=== PATIENT | female | born 1950 | race Caucasian/White ===

== ENCOUNTER 2020-01-07 11:51 | Outpatient (CLI) | payer MEDICARE, OTHER, SELFPAY ==
--- NOTE | ~2020-01-07 | XR_ITS ---
EXAMINATION: XR elbow RT min 3V DATE: 01/07/2020 12:11 INDICATION: Right elbow injury. TECHNIQUE: 4 views of right elbow were obtained. COMPARISON: None. FINDINGS: There is a fracture of lateral aspect of radial head involving 40% of the articular surface in near-anatomic alignment. Joint spaces are normal. There is a large elbow joint effusion. IMPRESSION: 1. Nondisplaced fracture of the radial head. 2. Large elbow joint effusion. Reviewed, dictated and finalized at location A.
== END 2020-01-07 11:52 | disposition home or self-care (01) ==
LOC: CHSIMG 11:58
PROVIDERS: PCP Internal Medicine; Visit Provider Internal Medicine
DX: S59.901A Unspecified injury of right elbow, initial encounter (principal)
CPT/HCPCS: 73080

== ENCOUNTER 2020-12-15 10:42 | Outpatient (CLI) | payer MEDICARE, OTHER, SELFPAY ==
--- NOTE | ~2020-12-15 | XR_ITS ---
XR lumbar spine 2-3V DATE: 12/15/2020 11:05 INDICATION: Back pain, bilateral anterior hip pain for 3 weeks TECHNIQUE: AP, lateral, coned lateral lumbosacral views COMPARISON: None FINDINGS: There is mild rotatory levoscoliosis of the lumbar spine. There is dextro scoliosis of the thoracic spine. There is diffuse osteopenia. There is multilevel degenerative disc disease of the lumbar spine. No fracture or bone destruction is evident. The included lower thoracic and lumbar pedicles are intact. The sacroiliac joints appear normal. Approximately 1 cm faceted calcified presumed gallstone overlies the upper abdomen. IMPRESSION: Osteopenia Mild rotatory levoscoliosis and multilevel degenerative disc disease of the lumbar spine Cholelithiasis Reviewed, dictated and finalized at location A. IMPRESSION: Osteopenia Mild rotatory levoscoliosis and multilevel degenerative disc disease of the lum bar spine Cholelithiasis
--- NOTE | ~2020-12-15 | XR_ITS ---
EXAMINATION: XR hip BI wo pelvis DATE: 12/15/2020 11:04 INDICATION: Bilateral anterior hip pain. Paresthesias. TECHNIQUE: Anteroposterior and frog-leg lateral views of the left and right hips were obtained. COMPARISON: None. FINDINGS: Alignment is normal. No fracture or suspected avascular necrosis. Bilateral hip and sacroiliac joint spaces are normal. Small heterotopic ossicle at the cephalad tip of the left greater trochanter. Enth esophytes at the bilateral ischial tuberosities. A few small phleboliths in the pelvis. IMPRESSION: 1. Normal bilateral hip joint spaces. No etiology for reported bilateral hip pain. Reviewed, dictated and finalized at location A. IMPRESSION: 1. Normal bilateral hip joint spaces. No etiology for reported bilateral hip pa in.
== END 2020-12-15 10:43 | disposition home or self-care (01) ==
LOC: CHSIMG 10:44
PROVIDERS: PCP Internal Medicine; Visit Provider Internal Medicine
DX: G57.13 Meralgia paresthetica, bilateral lower limbs (principal)
CPT/HCPCS: 72100; 73521

== ENCOUNTER 2021-08-07 02:29 | Day surgery (SDC) | payer MEDICARE, OTHER, SELFPAY ==
[2021-07-31 15:40] VITALS: BMI 26.6
[2021-08-07 12:50] VITALS: BP 144/86; PULSE 77; RESP 18; TEMP 36.6; O2SAT 98
--- NOTE | 2021-08-07 12:55 | WPDANESEPPF ---
Anes - Initial Pre Proc Eval Procedure: Operation Date: 08/07/21 13:30 Proposed Procedures p Screening Colonoscopy - Zeus Rodriguez MD Date/Time: 08/07/21 12:55 Surgeon: Zeus Rodriguez MD Pre Op Diagnosis: hx of colon polyps Patient Data Age: 71 Gender: F Height: 1.68 m Weight: 71.2 kg Last Vital Signs Temp 36.6 C 08/07/21 12:50 Pulse 77 08/07/21 12:50 Resp 18 08/07/21 12:50 BP 144/86 H 08/07/21 12:50 Pulse Ox 98 08/07/21 12:50 Allergies Allergy/AdvReac Type Severity Reaction Status Date / Time No Known Allergies Allergy Verified 08/07/21 12:49 Home Medications Medication Instructions Recorded Confirmed Type levothyroxine 75 mcg PO DAILY 07/31/21 07/31/21 History pravastatin 20 mg PO DAILY 07/31/21 07/31/21 History Patient hx anesthesia problems: none Family hx anesthesia problems: none Results Review: All pre-operative results and documents have been reviewed as part of the pre-operative evaluation. [facility] Past Medical History Medical History (Updated 08/07/21 @ 12:56 by Pramod Altman MD) Hypothyroidism Surgical History Surgical History (Updated 08/07/21 @ 12:56 by Pramod Altman MD) History of ankle surgery Social History Social History Smoking status: Never smoker Alcohol intake: current Alcohol use details: occasional Substance use: never Substance use type: does not use Living arrangements: with family Spiritual care concerns: No Anes - Eval Final PreProcedure Day of Procedure 08/07/21 12:55 Patient weight: normal Heart: regular rate and rhythm Lungs: clear to auscultation Airway: Mallampati scale class II Neurological: alert and oriented Last oral intake: >/= 8 hours Emergent: no Anesthetic plan: proceed Anesthesia type and monitoring: general GIVS and standard monitoring Results Review: All pre-operative results and documents have been reviewed as part of the pre-operative evaluation. Informed Consent: The patient's anesthetic plan and its attendant risks and benefits were discussed with the patient/family/POA. Questions were solicited and answers provided to the satisfaction of the patient/family/POA.
[2021-08-07] MEDS: LACTATED RINGERS 1,000 ML 150 ML IV CONT (13:05)
--- NOTE | 2021-08-07 13:17 | PM.HPGS ---
History of Present Illness History of Present Illness Consent: Risks, benefits, and alternatives have been discussed and questions answered. Patient agrees to proceed with procedure. Chief complaint: hx of colon polyps Narrative: Shweta Jerez is a 71 year old female here for screening colonoscopy, last one 2009 Review of Systems Constitutional: Constitutional: Denies headache(s) and Denies weakness Eyes: Eyes: Denies blurry vision ENT: Reports Normal hearing present, Denies headache(s) and Denies neck pain Cardiovascular: Cardiovascular: Denies chest pain and Denies dyspnea Respiratory: Respiratory: Denies dyspnea Gastrointestinal: Gastrointestinal: Reports no additional gastrointestinal complaints Genitourinary: Genitourinary: Denies dysuria Musculoskeletal: Musculoskeletal: Denies neck pain Integumentary/Breasts: Skin/Breast: Denies dry skin Neurologic: Reports Normal hearing present, Denies headache(s) and Denies weakness Psychiatric: Psychiatric: Denies anxiety Endocrine: Endocrine: Denies change in body appearance Hematologic/Lymphatic: Hematologic/Lymphatic: Denies easy bleeding Allergic/Immunologic: Allergic/Immunologic: Denies urticaria PMFSH Past Medical History Medical History (Updated 08/07/21 @ 13:17 by Zeus Rodriguez MD) Colon cancer screening Hypothyroidism Surgical History Surgical History (Updated 08/07/21 @ 12:56 by Pramod Altman MD) History of ankle surgery Social History Social History Smoking status: Never smoker Alcohol intake: current Alcohol use details: occasional Substance use: never Substance use type: does not use Living arrangements: with family Spiritual care concerns: No Meds Home Medications and Allergies Home Medications Medication Instructions Recorded Confirmed Type levothyroxine 75 mcg PO DAILY 07/31/21 07/31/21 History pravastatin 20 mg PO DAILY 07/31/21 07/31/21 History Allergies Allergy/AdvReac Type Severity Reaction Status Date / Time No Known Allergies Allergy Verified 08/07/21 12:49 Vital Signs Vital Signs - 24 hr 08/07/21 12:50 Temperature 97.9 F Pulse Rate 77 Respiratory Rate 18 Blood Pressure 144/86 H Pulse Oximetry 98 Exam Const: General: comfortable and no acute distress HENMT: General nose exam: Normal nares present Eyes: General: appearance normal, both eyes and all related structures Neck: Neck: no JVD Resp: Auscultation: clear to auscultation bilaterally Cardio: Rate: regular rate Rhythm: regular rhythm GI: Inspection: non-distended GI Palp: Yes Soft to palpation Skin: General skin exam: normal color Neuro: General: gait normal Speech: normal speech Extrem: General: normal to inspection Psych: Mental Status: mental status grossly normal Assessment and Plan Assessment and plan (1) Colon cancer screening: Code(s): Z12.11 - Encounter for screening for malignant neoplasm of colon Status: Acute Assessment and Plan: colonoscopy
[2021-08-07 13:45] VITALS: BP 107/58; PULSE 71; RESP 16; O2SAT 96
[2021-08-07 13:55] VITALS: BP 113/73; PULSE 72; RESP 22; O2SAT 100
[2021-08-07 14:05] VITALS: BP 127/79; PULSE 69; RESP 22; O2SAT 100
== END 2021-08-07 14:16 | disposition home or self-care (01) ==
PROVIDERS: PCP Internal Medicine; Visit Provider Internal Medicine Gastroenterology
PROC: 0DJD8ZZ Inspection of Lower Intestinal Tract, Via Natural or Artificial Opening Endoscopic (ICD-10-PCS; CPT 45378; principal; 2021-08-07 13:30)
DX: Z12.11 Encounter for screening for malignant neoplasm of colon (principal); D12.0 Benign neoplasm of cecum; D12.5 Benign neoplasm of sigmoid colon; K63.5 Polyp of colon; E03.9 Hypothyroidism, unspecified
CPT/HCPCS: 45385; 45381; 88305; J2704; J7120

== ENCOUNTER 2022-02-09 10:05 | Outpatient (CLI) | payer MEDICARE, OTHER, SELFPAY ==
--- NOTE | ~2022-02-09 | XR_ITS ---
EXAMINATION: XR chest 2V 02/09/2022 11:05 INDICATION: Preop for back surgery PROCEDURE: 2 view chest COMPARISON: 07/13/2010 FINDINGS: The lungs are clear. The cardiomediastinal silhouette is within normal limits. There are no pleural effusions. There is no pneumothorax suspected. There is thoracic dextroscoliosis with mo derate spondylosis. IMPRESSION: 1: NO ACUTE CARDIOPULMONARY DISEASE. Reviewed, dictated and finalized at location A.
[2022-02-09 10:29] LABS: Basophils Absolute Auto 0.08 K/mm3 (0.00-0.10); Basophils Percent Auto 1.6 % (0.0-1.0); Eosinophils Percent Auto 3.9 % (1.0-6.0); Hematocrit 42.3 % (35.0-42.0); Hemoglobin 14.2 g/dL (11.7-13.8); Immature Granulocyte Absolute 0.01 K/mm3 (0.00-0.00); Immature Granulocyte Percent A 0.2 % (0.0-0.0); Lymphocytes Absolute Auto 1.87 K/mm3 (1.10-4.50); Lymphocytes Percent Auto 36.3 % (18.0-42.0); Mean Corpuscular HGB Conc 33.6 g/dL (32.0-36.0); Mean Corpuscular Hemoglobin 32.2 pg (27.0-31.0); Mean Corpuscular Volume 95.9 fL (78.0-102.0); Monocytes Absolute Auto 0.41 K/mm3 (0.10-0.90); Neutrophils Absolute Auto 2.6 K/mm3 (1.7-7.2); Platelet Count Result 252 K/mm3 (150-420); Red Blood Count 4.41 M/mm3 (4.20-5.40); Red Cell Distribution Width 12.3 % (11.6-14.4); White Blood Count 5.2 K/mm3 (4.8-10.8)
[2022-02-09 10:45] LABS: Anion Gap 5 mmol/L (8-16); Blood Urea Nitrogen 14 mg/dL (7-18); Carbon Dioxide 29 mmol/L (21-32); Chloride 106 mmol/L (98-108); Estimated Glomerular Filt Rate 56; Glucose 106 mg/dL (70-99); Osmolality Calculated 290 mOsm/kg (285-295); Potassium 4.2 mmol/L (3.5-5.1); Sodium 140 mmol/L (136-145)
[2022-02-09 11:01] LABS: Partial Thromboplastin Time 27.2 SEC (23.90-30.70); Prothrombin Time 10.5 Seconds (9.50-12.10)
--- NOTE | 2022-02-09 11:15 | ECG_ITS ---
Measurements Intervals [place] Rate: 71 P: 49 W[place]: 162 QRS: -12 QRSD: 89 T: 42 QT: 375 QTc: 409 Interpretive Statements SINUS RHYTHM BORDERLINE LEFTWARD AXIS NONSPECIFIC T-WAVE ABNORMALITY BORDERLINE ECG NO PREVIOUS ECG AVAILABLE FOR COMPARISON Electronically Signed On 02-09-2022 14:51:57 CDT by Robby George M.D.
[2022-02-09 12:19] LABS: Add Urine Microscopic? YES; Appearance Urine Clear (Clear); Bilirubin Urine Negative (Negative); Blood Urine Negative (Negative); Color Urine Light Yellow (Yellow); Glucose Urine UA Negative (Negative); Ketones Urine Negative (Negative); Leukocyte Esterase Ur Trace LEU/UL (Negative); Nitrate Urine Negative (Negative); Protein Urine Negative (Negative); Urobilinogen Urine 0.2 mg/dL (0.2-1.0); pH Urine 6.5 (5.0-8.0)
[2022-02-09 12:25] LABS: Bacteria Urine Trace /hpf; RBC Urine None seen /hpf (0-2); Squamous Epithelial Cell Urine Few /hpf (Few); WBC Urine None seen /hpf (0-3)
== END 2022-02-09 10:06 | disposition home or self-care (01) ==
LOC: CHSLAB 10:13
PROVIDERS: PCP Internal Medicine; Visit Provider Neurological Surgery
DX: M48.062 Spinal stenosis, lumbar region with neurogenic claudication (principal); Z01.818 Encounter for other preprocedural examination; Z51.81 Encounter for therapeutic drug level monitoring
CPT/HCPCS: 36415; 71046; 80048; 81001; 85025; 85610; 85730; 93005

== ENCOUNTER 2022-02-23 13:57 | Inpatient (IN) | payer MEDICARE, OTHER, SELFPAY ==
--- NOTE | 2022-02-23 14:15 | ADMGEN ---
This patient, Shweta Jerez, was admitted to 2nd Floor Room 205-1. Patient/family oriented to hospital policies and general routines including ID bracelet, bed and alarms, visiting hours, pain management, procedures, bathroom and other care routines, personal items, smoking policy, room service/diet, and visiting hours. Information on how to activate the Rapid Response Team has been discussed. Patient/Family are encouraged to report perceived risks to care and to ask questions if they do not understand what they are told or what they should do.
[2022-02-23 14:33] VITALS: BMI 27.0
[2022-02-23 14:49] VITALS: BP 136/68; PULSE 72; RESP 18; TEMP 36.3; O2SAT 98
--- NOTE | 2022-02-23 15:31 | PHAR ---
PT. PRIOR S.CR 0.9 BEFORE ADMISSION REHAB PT. ESTIMATED CRCL ~60ML/MIN. TLS
[2022-02-23 15:36] VITALS: BP 136/68; PULSE 72; RESP 18; TEMP 36.3; O2SAT 98
[2022-02-23] MEDS: HYDROcodone/acetaminophen (*CRX) 5-325 MG TABLET 1 TAB PO ×2 (15:43→22:49)
[2022-02-23] MEDS: GABAPENTIN 300 MG CAPSULE 600 MG PO (16:23)
[2022-02-23] MEDS: ACETAMINOPHEN 325 MG TABLET 650 MG PO (19:10)
[2022-02-23] MEDS: LOSARTAN POTASSIUM 25 MG TABLET PO (21:52)
[2022-02-23] MEDS: DOCUSATE SODIUM 100 MG CAPSULE PO (21:52)
[2022-02-23 23:05] VITALS: BP 137/69; PULSE 70; RESP 18; TEMP 36.7; O2SAT 95
[2022-02-24] MEDS: ACETAMINOPHEN 325 MG TABLET 650 MG PO ×3 (02:36→17:03)
[2022-02-24] MEDS: HYDROcodone/acetaminophen (*CRX) 5-325 MG TABLET 1 TAB PO ×3 (04:36→22:30)
--- NOTE | 2022-02-24 04:59 | PC.NURSE ---
Pt stated she feels that her knees have a fullness to them and bother her at times. The fullness brings some discomfort to the pt. This had started prior to admission. Findings noted and charge nurse made aware of situation.
[2022-02-24] MEDS: LEVOTHYROXINE SODIUM 75 MCG TABLET PO (06:18)
[2022-02-24 08:00] VITALS: BP 114/57; PULSE 68; RESP 18; TEMP 35.9; O2SAT 100
[2022-02-24] MEDS: GABAPENTIN 300 MG CAPSULE 600 MG PO ×2 (08:43→17:03)
[2022-02-24] MEDS: ASPIRIN 81 MG ENTERIC TABLET PO (08:43)
[2022-02-24] MEDS: polyethylene glycoL 3350 17 GM POWD.PACK PO (08:43)
[2022-02-24] MEDS: ENOXAPARIN 40 MG/0.4 ML SYRINGE SUB-Q (08:43)
[2022-02-24] MEDS: DOCUSATE SODIUM 100 MG CAPSULE PO ×2 (08:43→21:02)
[2022-02-24] MEDS: PRAVASTATIN SODIUM 20 MG TABLET PO (08:43)
--- NOTE | 2022-02-24 10:49 | PM.IMHP ---
H&P: HPI History of Present Illness Date/Time: 02/24/22 10:49 Chief Complaint: Rehab Narrative: This is a 71-year-old female who presented to outside hospital with back pain, leg pain and claudication. Her MRI showed that she has severe lumbar stenosis of L2, L3 and L4 especially at L4 and 5 interspace. She also had thoracic stenosis at T10 level and cord compression. She presented for an elective decompression on 02/22/2022 8 L2/L3/L4 laminectomy/medial facetectomy and bilateral foraminotomy was completed , patient admitted in swing bed for rehabilitation due to decreased balance decreased mobility in severe limited function endurant and/or mobility. Patient's WBC 7.0 hemoglobin 10.5, hematocrit 31.5, platelets 233, sodium 134, potassium 4.1, BUN 14, creatinine 0.90, glucose 124,. Patient notes that at this time her pain is controlled she was informed to notify me if it is not controlled and I will adjust her medications. The patient denies SOB, CP, palpitation, extremity numbness, lightheadedness, dizziness, constipation, diarrhea, chills, or fever. [facility] Past Medical History Medical History (Updated 02/24/22 @ 11:00 by JAYDA Levine) Colon cancer screening HLD (hyperlipidemia) HTN (hypertension) Hypothyroidism Hypothyroidism Surgical History Surgical History (Updated 02/24/22 @ 11:00 by JAYDA Levine) History of ankle surgery Social History Social History Smoking status: Never smoker Alcohol intake: current Drinks per week: 0 Alcohol use details: occasional Substance use: never Substance use type: does not use Spiritual care concerns: No Meds Home Medications and Allergies Home Medications Medication Instructions Recorded Confirmed Type levothyroxine 75 mcg tablet 75 mcg PO DAILY 07/31/21 02/23/22 History pravastatin 20 mg tablet 20 mg PO DAILY 07/31/21 02/23/22 History aspirin 81 mg tablet,delayed 81 mg PO DAILY 02/23/22 02/23/22 History release (Ecotrin Low Strength) calcium-ergocalciferol (vit D2) 1 tablet PO QACLUNCH 02/23/22 02/23/22 History tablet enoxaparin 40 mg/0.4 mL 40 mg subcut DAILY 02/23/22 02/23/22 History subcutaneous syringe gabapentin 600 mg tablet 600 mg PO BID 02/23/22 02/23/22 History losartan 25 mg tablet 25 mg PO QHS 02/23/22 02/23/22 History oxycodone 10 mg tablet 10 mg PO Q4H PRN Pain, Moderate 02/23/22 02/23/22 History Allergies Allergy/AdvReac Type Severity Reaction Status Date / Time codeine AdvReac Itching Verified 02/23/22 15:16 Corticosteroids AdvReac Unknown Verified 02/23/22 15:16 (Glucocorticoids) Vital Signs Vital Signs - 24 hr 02/23/22 14:49 02/23/22 14:49 02/23/22 15:36 Temperature 97.4 F L 97.4 F L Pulse Rate 72 72 72 Respiratory Rate 18 18 18 Blood Pressure 136/68 136/68 Pulse Oximetry 98 98 98 Oxygen Delivery Room Air Room Air Room Air 02/23/22 23:05 02/24/22 08:00 Temperature 98.1 F 96.6 F L Pulse Rate 70 68 Respiratory Rate 18 18 Blood Pressure 137/69 114/57 L Pulse Oximetry 95 100 Oxygen Delivery Room Air Room Air Exam Narrative: GENERAL: This is a well-nourished, well-developed patient, in no apparent distress. HEAD: normocephalic, atraumatic. EYES: PERRL. Sclera clear/white. Vision is grossly intact. EARS: External ears normal, auditory canals clear and without drainage, TMs normal without perforation. Hearing grossly intact. NOSE: External nose normal with no obvious nasal discharge, nares without redness, no rhinorrhea. THROAT: Mucous membranes moist, posterior pharynx clear. NECK: Neck supple, non-tender without lymphadenopathy, masses or thyromegaly. CARDIOVASCULAR: Regular rate and rhythm without murmurs, gallops, or rubs. RESPIRATORY: Clear to auscultation. Breath sounds equal bilaterally. No wheezes, rales, or rhonchi. GASTROINTESTINAL: Abdomen soft, non-tender, nondistended. Bowel sounds are active. No hepato-spl
[2022-02-24] MEDS: CALCIUM/VITAMIN D 250 MG TABLET 1 TABLET PO (11:50)
[2022-02-24 12:15] LABS: Thyroid Stimulating Hormone 1.66 uIU/mL (0.36-3.74)
[2022-02-24 16:00] VITALS: BP 124/64; PULSE 64; RESP 18; TEMP 35.8; O2SAT 94
[2022-02-24] MEDS: LOSARTAN POTASSIUM 25 MG TABLET PO (21:02)
[2022-02-24 23:02] VITALS: BP 145/78; PULSE 61; RESP 17; TEMP 36.4; O2SAT 99
[2022-02-25] MEDS: ACETAMINOPHEN 325 MG TABLET 650 MG PO ×4 (04:11→20:49)
[2022-02-25] MEDS: LORazepam (*CRX) 0.5 MG TABLET PO (04:13)
[2022-02-25] MEDS: LEVOTHYROXINE SODIUM 75 MCG TABLET PO (06:47)
--- NOTE | 2022-02-25 07:02 | PC.NURSE ---
[place] dressing on pt's back removed because pt was anxious that she had ripped a stitch open. Upon inspection the wound is healing nicely and has not split open. Minimal drainage noted w/no odor. Skin around incision has pink/red healing tissue and some scabs present on the lower left area. Incision is now open to air.
[2022-02-25 08:00] VITALS: BP 128/56; PULSE 89; RESP 16; TEMP 36.4; O2SAT 94
[2022-02-25] MEDS: DOCUSATE SODIUM 100 MG CAPSULE PO ×2 (08:50→20:48)
[2022-02-25] MEDS: polyethylene glycoL 3350 17 GM POWD.PACK PO (08:50)
[2022-02-25] MEDS: GABAPENTIN 300 MG CAPSULE 600 MG PO ×2 (08:50→17:05)
[2022-02-25] MEDS: ENOXAPARIN 40 MG/0.4 ML SYRINGE SUB-Q (08:50)
[2022-02-25] MEDS: ASPIRIN 81 MG ENTERIC TABLET PO (08:51)
[2022-02-25] MEDS: PRAVASTATIN SODIUM 20 MG TABLET PO (08:51)
[2022-02-25] MEDS: CALCIUM/VITAMIN D 250 MG TABLET 1 TABLET PO (12:31)
[2022-02-25 16:00] VITALS: BP 137/63; PULSE 61; RESP 18; TEMP 36.2; O2SAT 99
[2022-02-25] MEDS: LOSARTAN POTASSIUM 25 MG TABLET PO (20:48)
[2022-02-25 23:48] VITALS: BP 142/61; PULSE 63; RESP 15; TEMP 36.6; O2SAT 95
[2022-02-26] MEDS: LORazepam (*CRX) 0.5 MG TABLET PO ×2 (02:30→21:00)
[2022-02-26] MEDS: LEVOTHYROXINE SODIUM 75 MCG TABLET PO (06:31)
[2022-02-26] MEDS: ACETAMINOPHEN 325 MG TABLET 650 MG PO ×4 (06:34→20:58)
[2022-02-26 08:00] VITALS: BP 134/68; PULSE 64; RESP 14; TEMP 36.7; O2SAT 95
--- NOTE | 2022-02-26 08:30 | P.PNCROSS_ITS ---
Event Note Event Note Event Note: Patient states that she is trying to avoid narcotics she has not had a bowel mo vement in a couple of days informed her that she has suppository if needed.
[2022-02-26] MEDS: ENOXAPARIN 40 MG/0.4 ML SYRINGE SUB-Q (08:57)
[2022-02-26] MEDS: ASPIRIN 81 MG ENTERIC TABLET PO (08:58)
[2022-02-26] MEDS: GABAPENTIN 300 MG CAPSULE 600 MG PO ×2 (08:58→17:05)
[2022-02-26] MEDS: PRAVASTATIN SODIUM 20 MG TABLET PO (08:58)
[2022-02-26] MEDS: DOCUSATE SODIUM 100 MG CAPSULE PO ×2 (08:58→21:00)
[2022-02-26] MEDS: polyethylene glycoL 3350 17 GM POWD.PACK PO (08:58)
[2022-02-26] MEDS: CALCIUM/VITAMIN D 250 MG TABLET 1 TABLET PO (11:56)
[2022-02-26 16:00] VITALS: BP 120/75; PULSE 62; RESP 18; TEMP 36.3; O2SAT 96
[2022-02-26] MEDS: LOSARTAN POTASSIUM 25 MG TABLET PO (21:00)
[2022-02-26] MEDS: traZODone HCL 50 MG TABLET PO (21:00)
[2022-02-27] VITALS: BP 116/60; PULSE 63; RESP 16; TEMP 36.5; O2SAT 96
[2022-02-27] MEDS: ACETAMINOPHEN 325 MG TABLET 650 MG PO ×3 (06:32→16:29)
[2022-02-27] MEDS: LEVOTHYROXINE SODIUM 75 MCG TABLET PO (06:43)
[2022-02-27 08:00] VITALS: BP 120/60; PULSE 65; RESP 14; TEMP 36.7; O2SAT 98
[2022-02-27] MEDS: GABAPENTIN 300 MG CAPSULE 600 MG PO ×2 (09:10→16:28)
[2022-02-27] MEDS: ASPIRIN 81 MG ENTERIC TABLET PO (09:10)
[2022-02-27] MEDS: PRAVASTATIN SODIUM 20 MG TABLET PO (09:13)
[2022-02-27] MEDS: polyethylene glycoL 3350 17 GM POWD.PACK PO (09:13)
[2022-02-27] MEDS: ENOXAPARIN 40 MG/0.4 ML SYRINGE SUB-Q (09:13)
[2022-02-27] MEDS: DOCUSATE SODIUM 100 MG CAPSULE PO ×2 (09:14→20:47)
[2022-02-27] MEDS: CALCIUM/VITAMIN D 250 MG TABLET 1 TABLET PO (12:15)
[2022-02-27 14:15] VITALS: BP 120/60; PULSE 70; RESP 14; TEMP 36.7; O2SAT 98
[2022-02-27 15:25] VITALS: BP 110/55; PULSE 96; RESP 16; TEMP 36.6; O2SAT 100
[2022-02-27] MEDS: LORazepam (*CRX) 0.5 MG TABLET PO (20:47)
[2022-02-27] MEDS: LOSARTAN POTASSIUM 25 MG TABLET PO (21:01)
[2022-02-27 23:58] VITALS: BP 117/69; PULSE 72; RESP 20; TEMP 36.2; O2SAT 100
[2022-02-28] MEDS: LEVOTHYROXINE SODIUM 75 MCG TABLET PO (06:32)
[2022-02-28] MEDS: ACETAMINOPHEN 325 MG TABLET 650 MG PO ×2 (07:42→16:14)
[2022-02-28 08:00] VITALS: BP 111/58; PULSE 65; RESP 14; TEMP 36.4; O2SAT 98
[2022-02-28] MEDS: ENOXAPARIN 40 MG/0.4 ML SYRINGE SUB-Q (09:12)
[2022-02-28] MEDS: PRAVASTATIN SODIUM 20 MG TABLET PO (09:13)
[2022-02-28] MEDS: ASPIRIN 81 MG ENTERIC TABLET PO (09:14)
[2022-02-28] MEDS: DOCUSATE SODIUM 100 MG CAPSULE PO (09:14)
[2022-02-28] MEDS: polyethylene glycoL 3350 17 GM POWD.PACK PO (09:15)
[2022-02-28] MEDS: GABAPENTIN 300 MG CAPSULE 600 MG PO ×2 (09:19→16:15)
[2022-02-28] MEDS: CALCIUM/VITAMIN D 250 MG TABLET 1 TABLET PO (12:00)
[2022-02-28 16:00] VITALS: BP 139/66; PULSE 78; RESP 18; TEMP 36.8; O2SAT 95
[2022-02-28] MEDS: LOSARTAN POTASSIUM 25 MG TABLET PO (21:02)
[2022-02-28] MEDS: LORazepam (*CRX) 0.5 MG TABLET PO (21:02)
[2022-02-28 23:53] VITALS: BP 136/76; PULSE 75; RESP 18; TEMP 36.1; O2SAT 95
[2022-03-01] MEDS: LEVOTHYROXINE SODIUM 75 MCG TABLET PO (06:07)
[2022-03-01 08:00] VITALS: BP 138/75; PULSE 75; RESP 14; TEMP 36.8; O2SAT 98
[2022-03-01] MEDS: GABAPENTIN 300 MG CAPSULE 600 MG PO (09:20)
[2022-03-01] MEDS: DOCUSATE SODIUM 100 MG CAPSULE PO (09:34)
[2022-03-01] MEDS: ASPIRIN 81 MG ENTERIC TABLET PO (09:34)
[2022-03-01] MEDS: polyethylene glycoL 3350 17 GM POWD.PACK PO (09:39)
--- NOTE | 2022-03-01 09:39 | PM.IMHP ---
H&P: HPI History of Present Illness Date/Time: 03/01/22 09:39 Chief Complaint: Laminectomy, Weakness, REHAB Review of Systems Review of Systems: back pain, Weakness All systems reviewed & are unremarkable except as noted in HPI and below [facility] Past Medical History Medical History Colon cancer screening HLD (hyperlipidemia) HTN (hypertension) Hypothyroidism Hypothyroidism Surgical History Surgical History History of ankle surgery Social History Social History Smoking status: Never smoker Alcohol intake: current Drinks per week: 0 Alcohol use details: occasional Substance use: never Substance use type: does not use Spiritual care concerns: No Comments At time as signature, I have reviewed and agree with nursing past medical, social, surgical and family history. Please see nursing chart for further information. There is no relevant family history pertinent to the presenting complaint. Meds Home Medications and Allergies Home Medications Medication Instructions Recorded Confirmed Type levothyroxine 75 mcg tablet 75 mcg PO DAILY 07/31/21 02/23/22 History pravastatin 20 mg tablet 20 mg PO DAILY 07/31/21 02/23/22 History aspirin 81 mg tablet,delayed 81 mg PO DAILY 02/23/22 02/23/22 History release (Ecotrin Low Strength) calcium-ergocalciferol (vit D2) 1 tablet PO QACLUNCH 02/23/22 02/23/22 History tablet enoxaparin 40 mg/0.4 mL 40 mg subcut DAILY 02/23/22 02/23/22 History subcutaneous syringe gabapentin 600 mg tablet 600 mg PO BID 02/23/22 02/23/22 History losartan 25 mg tablet 25 mg PO QHS 02/23/22 02/23/22 History oxycodone 10 mg tablet 10 mg PO Q4H PRN Pain, Moderate 02/23/22 02/23/22 History lorazepam 0.5 mg tablet 0.5 mg PO Q6H PRN Anxiety #10 tabs 03/01/22 Rx Allergies Allergy/AdvReac Type Severity Reaction Status Date / Time codeine AdvReac Itching Verified 02/23/22 15:16 Corticosteroids AdvReac Unknown Verified 02/23/22 15:16 (Glucocorticoids) Vital Signs Vital Signs - 24 hr 02/28/22 16:00 02/28/22 23:53 03/01/22 08:00 Temperature 98.2 F 96.9 F L 98.3 F Pulse Rate 78 75 75 Respiratory Rate 18 18 14 Blood Pressure 139/66 136/76 138/75 Pulse Oximetry 95 95 98 Oxygen Delivery Room Air Room Air Room Air Exam Narrative: GENERAL: This is a well-nourished, well-developed patient, in no apparent distress. HEAD: normocephalic, atraumatic. EYES: PERRL. Sclera clear/white. Vision is grossly intact. EARS: External ears normal, auditory canals clear and without drainage, TMs normal without perforation. Hearing grossly intact. NOSE: External nose normal with no obvious nasal discharge, nares without redness, no rhinorrhea. THROAT: Mucous membranes moist, posterior pharynx clear. NECK: Neck supple, non-tender without lymphadenopathy, masses or thyromegaly. CARDIOVASCULAR: Regular rate and rhythm without murmurs, gallops, or rubs. RESPIRATORY: Clear to auscultation. Breath sounds equal bilaterally. No wheezes, rales, or rhonchi. GASTROINTESTINAL: Abdomen soft, non-tender, nondistended. Bowel sounds are active. No hepato-splenomegaly, or palpable masses. No guarding. SKIN: Lower back clean dry and intact with glue adhesive. No signs and symptoms of infection healing well NEURO: awake, alert, and oriented to person, place and time. There were no obvious focal neurologic abnormalities. Steady gait EXTREMITIES: Normal range of motion. No edema. No calf tenderness. Negative Homans sign bilaterally. BACK: Nontender without deformity or crepitance. No flank tenderness. Assessment and Plan Assessment and plan (1) S/P spinal surgery: Code(s): Z98.890 - Other specified postprocedural states Status: Acute Assessment and Plan: Status post t-10/11 laminectomy with L 2/3, L3/4 laminectomy
[2022-03-01] MEDS: PRAVASTATIN SODIUM 20 MG TABLET PO (09:40)
--- NOTE | 2022-03-01 12:17 | PM.DS ---
DS: Admitting Diagnosis Discharge Date 03/01/2022 Admitting Diagnosis laminectomy. Weakness, REhab DS: Discharge Diagnosis Discharge Diagnosis (1) S/P spinal surgery: Code(s): Z98.890 - Other specified postprocedural states Status: Acute Assessment and Plan: Status post t-10 laminectomy with L 2/3, L3/4 laminectomy complete 02/19/2022 Continue pain control at home Monitor for signs and symptoms of infection Nose stooping/twisting or bending or lifting over 10 ib Leave surgical site open to air as instructed by surgeon Return to Dr. Pizano office in 6 week (2) HTN (hypertension): Code(s): I10 - Essential (primary) hypertension Status: Acute Assessment and Plan: monitor blood pressure continue Losartan continue to monitor blood pressure (3) HLD (hyperlipidemia): Code(s): E78.5 - Hyperlipidemia, unspecified Status: Acute Assessment and Plan: Continue home medication (4) Hypothyroidism: Code(s): E03.9 - Hypothyroidism, unspecified Status: Acute Assessment and Plan: Continue you Oral antithyroid medication (5) Weakness: Code(s): R53.1 - Weakness Status: Acute Assessment and Plan: ?Exhibit tolerance during physical activity as evidenced by a normal fluctuation of vital signs during physical activity. ?Patient will be? ability to perform required activities of daily living. Provide appropriate nutrition for healing and strength. ?Use appropriate to prevent falls. Continue physical therapy/occupational therapy. DS: Summary Hospital Course Reason for hospitalization: Weakness, Laminectomy, REhab Hospital Course: This is a 71 year old female that is here postsurgical decompression laminectomy medial fasciectomy patient has a past medical history of high blood pressure, hyperlipidemia, hypothyroidism and weakness postsurgical procedure. Patient has been participating with physical therapy and has greatly improved. Patient uses a walker to get around patient endurance has improved and her mobility with a walker has significantly improved patient is able to get around by herself without walker pain is well controlled. At this time patient will go home as labs are within normal limits potassium 4.2, sodium 140, BUN 14, creatinine 0.99, WBCs are 5.2, hemoglobin 14.2, [place] 42.3 platelets 252. Patient will have outpatient physical therapy she has remained afebrile no shortness of breath chest palpitations extremity numbness no lightness dizziness constipation or diarrhea. Time Spent with Patient Time attestation: Total time spent providing and/or coordinating discharge services: Exam Narrative: GENERAL: This is a well-nourished, well-developed patient, in no apparent distress. HEAD: normocephalic, atraumatic. EYES: PERRL. Sclera clear/white. Vision is grossly intact. EARS: External ears normal, auditory canals clear and without drainage, TMs normal without perforation. Hearing grossly intact. NOSE: External nose normal with no obvious nasal discharge, nares without redness, no rhinorrhea. THROAT: Mucous membranes moist, posterior pharynx clear. NECK: Neck supple, non-tender without lymphadenopathy, masses or thyromegaly. CARDIOVASCULAR: Regular rate and rhythm without murmurs, gallops, or rubs. RESPIRATORY: Clear to auscultation. Breath sounds equal bilaterally. No wheezes, rales, or rhonchi.? GASTROINTESTINAL: Abdomen soft, non-tender, nondistended. Bowel sounds are active. No hepato-splenomegaly, or palpable masses. No guarding. SKIN: Lower back clean dry and intact with glue adhesive.? No signs and symptoms of infection healing well granulation of old drainage noted no erythema NEURO: awake, alert, and oriented to person, place and time. There were no obvious focal neurologic abnormalities.? Steady gait EXTREMITIES: Normal range of motion.? No edema. No calf tenderness. Negative Homans sign bilaterally.
--- NOTE | 2022-03-01 13:30 | PC.NURSE ---
Pt discharged to home with vss. Discharge instructions given to pt and spouse regarding follow up appointments, medications and S&S of infection. Both verbalized understanding. RN took pt to the car via WC.
--- NOTE | 2022-03-03 11:04 | PC.NURSE ---
Follow up call made, spoke with Shweta, doing better today, yesterday was rough , states nurse did go over discharge instructions, understood them and had no questions, states nursing care was excellent, nurses were very understanding, patient with her.
== END 2022-03-01 13:10 | disposition home health service (06) | DRG 561 ==
PROVIDERS: Nurse Practitioner; Admitting Provider Internal Medicine; PCP Neurological Surgery; Visit Provider Internal Medicine
DX: Z47.89 Encounter for other orthopedic aftercare (principal); I10 Essential (primary) hypertension; E78.5 Hyperlipidemia, unspecified; E03.9 Hypothyroidism, unspecified
CPT/HCPCS: 36415; 84443; 97110; 97161; 97165; 97530; 97535; A9270; J1650

== ENCOUNTER 2022-04-10 12:59 | Outpatient (RCR) | payer MEDICARE, OTHER, SELFPAY ==
--- NOTE | 2022-04-10 15:11 | PTOPEVAL ---
Thank you for referring Shweta Jerez to [facility].? The patient is scheduled to be seen for therapy?1-2x/week for 8 visits. Please review, sign, date and return this plan of care JULIAN. I agree with and certify that the following plan of care is medically necessary. Referring Physician Date Admitting Provider: Attending Provider: Roly Pizano, Referring Provider: *PT Outpatient Evaluation Start: 04/10/22 12:44 Freq: Status: Active Protocol: Document 04/10/22 12:44 [facility] (Rec: 04/10/22 14:09 [facility] [id number]) Therapy Assessment Status Assessment Status Assessment Status Evaluation Outpatient Past Medical History Neurological History Hx Neurological Disorders No Significant History Cardiovascular History Hx Hypercholesterolemia Yes Hx Hypertension Yes Respiratory History Hx Respiratory Disorders No Significant History Gastrointestinal History Hx Gastrointestinal Disorders No Significant History Genitourinary History Hx Genitourinary Disorders No Significant History Musculoskeletal History Hx Fractures Yes: right ankle-implants have been removed Hematological History Hx Hematological Disorders No Significant History Endocrine History Hx Hypothyroidism Yes HEENT History Hx Cataracts Yes: removed Integumentary History Hx Skin Disorders No Significant History Reproductive History Hx Reproductive Disorders No Significant History Psychosocial History Hx Psychiatric Disorders No Significant History Pain History History of Any Previous or Ongoing No Significant History Instance of Pain Anesthesia History Hx Anesthesia Reactions No Significant History Evaluation Information Problem Diagnosis Low back pain Onset 02/19/22 Subjective Information Pt reports that she had a Query Text:As Reported By Patient/ laminectomy (T10-11 and L2-3-4 Family ) on 02/19/22. Before surgery, she experienced bilateral radicular symptoms in her legs . Symptoms have improved since surgery but have not fully resolved. Pain described as searing. Feels bad when lying down or sitting too long, has difficulty with reaching down to the floor or when coming up from reaching down. Feels like she is getting around well but she is looking to improve strength, stability,
--- NOTE | 2022-04-10 15:13 | PTOPEVAL ---
Thank you for referring Shweta Jerez to [facility].? The patient is scheduled to be seen for therapy? ____x/week for ___ weeks. Please review, sign, date and return this plan of care JULIAN. I agree with and certify that the following plan of care is medically necessary. Referring Physician Date Admitting Provider: Attending Provider: Roly Pizano, Referring Provider: *PT Outpatient Evaluation Start: 04/10/22 12:44 Freq: Status: Active Protocol: Document 04/10/22 12:44 [facility] (Rec: 04/10/22 14:09 [facility] [id number]) Therapy Assessment Status Assessment Status Assessment Status Evaluation Outpatient Past Medical History Neurological History Hx Neurological Disorders No Significant History Cardiovascular History Hx Hypercholesterolemia Yes Hx Hypertension Yes Respiratory History Hx Respiratory Disorders No Significant History Gastrointestinal History Hx Gastrointestinal Disorders No Significant History Genitourinary History Hx Genitourinary Disorders No Significant History Musculoskeletal History Hx Fractures Yes: right ankle-implants have been removed Hematological History Hx Hematological Disorders No Significant History Endocrine History Hx Hypothyroidism Yes HEENT History Hx Cataracts Yes: removed Integumentary History Hx Skin Disorders No Significant History Reproductive History Hx Reproductive Disorders No Significant History Psychosocial History Hx Psychiatric Disorders No Significant History Pain History History of Any Previous or Ongoing No Significant History Instance of Pain Anesthesia History Hx Anesthesia Reactions No Significant History Evaluation Information Problem Diagnosis Low back pain Onset 02/19/22 Subjective Information Pt reports that she had a Query Text:As Reported By Patient/ laminectomy (T10-11 and L2-3-4 Family ) on 02/19/22. Before surgery, she experienced bilateral radicular symptoms in her legs . Symptoms have improved since surgery but have not fully resolved. Pain described as searing. Feels bad when lying down or sitting too long, has difficulty with reaching down to the floor or when coming up from reaching down. Feels like she is getting around well but she is looking to improve strength, stability,
== END 2022-05-14 15:41 | disposition home or self-care (01) ==
LOC: CHSPT 12:59
PROVIDERS: Visit Provider Neurological Surgery
DX: M47.814 Spondylosis without myelopathy or radiculopathy, thoracic region (principal); M48.062 Spinal stenosis, lumbar region with neurogenic claudication
CPT/HCPCS: 97110; 97112; 97140; 97161

== ENCOUNTER 2022-10-31 15:13 | Outpatient (RCR) | payer MEDICARE, OTHER, SELFPAY ==
--- NOTE | 2022-10-31 16:00 | PTOPEVAL1 ---
Assessment and note entered by Robby Vizcarra Evaluation Information Assessment Status Evaluation Diagnosis spinal stenosis, low back pain, post laminectomy Onset 02/19/22 Subjective Information Pt. reports that she underwent lumbar surgery in January. She reports that prior to surgery she had to walk with a cane due to pain in the legs. She reports that surgery has helped to reduce those symptoms. She reports that despite her initial progress she continues to note some weakness in the legs and pain into the legs, worse on the left than the right. She attempts to walk 1 mile a day if the weather is good. She states that she has to be more careful with her walking and notes that she will trip more frequently. She does notice that she will catch the left foot while walking on occasion. Pt. reports that her goal is to improve her steadiness with walking and improve strength. Reported Pain Level Pain Score 2: Self Report Assessment PT Clinical Summary Pt. is a 72 year old female who enters the clinic with left l.e. weakness and pain following lumbar surgery 8 months ago. She presents with generalized left l.e. weakness, impaired gait, imparied flexibility, impaired postural awareness, and pain on this date. Continued skilled PT is indicated in order to improve these areas to allow for improved comfort with IADL's. Plan of Care Interventions Electrical Stimulation,Hot Pack/Cold Pack,Manual Therapy,Neuro Re-education,Therapeutic Activities, Therapeutic Exercise PT Services Indicated Yes Treatment Frequency and 1x/week x 8 visits Duration These treatments will address the objective and functional deficits as defined above. The patient will be advanced safely and appropriately in order for the patient to progress towards his/her prior level of function. Additional exercises will be introduced and as well as a comprehensive home exercise program upon discharge, if needed, ?to ensure carryover of functional gains achieved in the clinic. This treatment plan has been reviewed and agreement upon by the patient.
--- NOTE | 2022-11-26 10:42 | PTOPDC ---
Assessment and note entered by Sharmila Funes DPT Evaluation Information Assessment Status Re-evaluation Diagnosis spinal stenosis, low back pain, post laminectomy Onset 02/19/22 Subjective Information Patient reports improvement since starting PT. She reports she is able to stand and walk longer. She reports she is able to get into and out of the bathtub with no pain and she reports she is able to get on the floor to play with her grandkids with no increase in pain. Reported Pain Level Pain Score 0: Self Report Assessment PT Clinical Summary Patient was seen for 4 visits and made signifcant progress in skilled PT. She has been able to return to getting into and out of the bath tub, getting on the floor to play with her grandchildren, standing for increased time and ambulating prolonged distances. She is independent with HEP and will be discharged at this time. Plan of Care PT Services Indicated No
== END 2022-11-26 14:31 | disposition home or self-care (01) ==
LOC: CHSPT 15:13
PROVIDERS: PCP Internal Medicine; Visit Provider Neurological Surgery
DX: M47.814 Spondylosis without myelopathy or radiculopathy, thoracic region (principal); M48.062 Spinal stenosis, lumbar region with neurogenic claudication
CPT/HCPCS: 97014; 97110; 97161; G0283

== ENCOUNTER 2023-10-03 00:08 | Day surgery (SDC) | payer MEDICARE, OTHER, SELFPAY ==
[2023-09-10 15:42] VITALS: BMI 26.6
--- NOTE | 2023-10-01 09:44 | SUR.PREOP ---
Patient called regarding upcoming procedure. Reviewed preop instructions, appointment times, and procedure prep.
[2023-10-03 07:22] VITALS: BP 146/80; PULSE 65; RESP 18; TEMP 36.5; O2SAT 100
[2023-10-03] MEDS: LACTATED RINGERS 1,000 ML 150 ML IV CONT (07:40)
--- NOTE | 2023-10-03 08:08 | P.PNAN_ITS ---
Anes - Initial Pre Proc Eval Procedure: Operation Date: 10/03/23 08:30 Proposed Procedures p Colonoscopy - Zeus Rodriguez MD Date/Time: 10/03/23 08:08 Surgeon: Zeus Rodriguez MD Pre Op Diagnosis: hx of colon polyps Patient Data Age: 73 Gender: F Height: 1.68 m Weight: 72.2 kg Last Vital Signs Temp 97.7 F 10/03/23 07:22 Pulse 65 10/03/23 07:22 Resp 18 10/03/23 07:22 BP 146/80 H 10/03/23 07:22 Pulse Ox 100 10/03/23 07:22 O2 Del Method Room Air 10/03/23 07:22 Allergies Allergy/AdvReac Type Severity Reaction Status Date / Time codeine AdvReac Itching Verified 10/03/23 07:20 Corticosteroids AdvReac Unknown Verified 10/03/23 07:20 (Glucocorticoids) Home Medications Medication Instructions Recorded Confirmed Type levothyroxine 75 mcg tablet 75 mcg PO DAILY 07/31/21 09/10/23 History pravastatin 20 mg tablet 20 mg PO DAILY 07/31/21 09/10/23 History aspirin 81 mg tablet,delayed 81 mg PO EVERY OTHER DAY 02/23/22 09/10/23 History release (Ecotrin Low Strength) gabapentin 600 mg tablet 600 mg PO BID 02/23/22 09/10/23 History losartan 25 mg tablet 25 mg PO QHS 02/23/22 09/10/23 History calcium 600 mg capsule 600 mg PO DAILY 09/10/23 09/10/23 History calcium polycarbophil 625 mg 625 mg PO DAILY 09/10/23 09/10/23 History tablet (FiberCon) polyethylene glycol 3350 17 17 g PO DIRECTED 09/10/23 09/10/23 History gram/dose oral powder (Miralax) Patient hx anesthesia problems: none Family hx anesthesia problems: none Results Review: All pre-operative results and documents have been reviewed as part of the pre- operative evaluation. [facility] Past Medical History Medical History Colon cancer screening HLD (hyperlipidemia) HTN (hypertension) Hypothyroidism Hypothyroidism Surgical History Surgical History History of ankle surgery Social History Social History Smoking status: Never smoker Alcohol intake: current Drinks per week: 0 Alcohol use details: occasional Substance use: never Substance use type: does not use Living arrangements: with family Spiritual care concerns: No Anes - Eval Final PreProcedure Day of Procedure 10/03/23 08:08 Patient weight: normal Heart: regular rate and rhythm Lungs: clear to auscultation Airway: Mallampati scale class II Neurological: alert and oriented Last oral intake: >/= 8 hours ASA classification: III Emergent: no Anesthetic plan: proceed Anesthesia type and monitoring: general GIVS and standard monitoring Results Review: All pre-operative results and documents have been reviewed as part of the pre- operative evaluation. Informed Consent: The patient's anesthetic plan and its attendant risks and benefits were discussed with the patient/family/POA. Questions were solicited and answers provided to the satisfaction of the patient/family/POA.
--- NOTE | 2023-10-03 08:16 | PM.HPGS ---
History of Present Illness History of Present Illness Consent: Risks, benefits, and alternatives have been discussed and questions answered. Patient agrees to proceed with procedure. Chief complaint: hx of colon polyps Narrative: Shweta Jerez is a 73 year old female with colon polyps 2020 Review of Systems Constitutional: Constitutional: Denies headache(s) and Denies weakness Eyes: Eyes: Denies blurry vision ENT: Reports Normal hearing present, Denies headache(s) and Denies neck pain Cardiovascular: Cardiovascular: Denies chest pain and Denies dyspnea Respiratory: Respiratory: Denies dyspnea Gastrointestinal: Gastrointestinal: Reports no additional gastrointestinal complaints Genitourinary: Genitourinary: Denies dysuria Musculoskeletal: Musculoskeletal: Denies neck pain Integumentary/Breasts: Skin/Breast: Denies dry skin Neurologic: Reports Normal hearing present, Denies headache(s) and Denies weakness Psychiatric: Psychiatric: Denies anxiety Endocrine: Endocrine: Denies change in body appearance Hematologic/Lymphatic: Hematologic/Lymphatic: Denies easy bleeding Allergic/Immunologic: Allergic/Immunologic: Denies urticaria [facility] Past Medical History Medical History (Updated 10/03/23 @ 08:17 by Zeus Rodriguez MD) Adenomatous colon polyp Colon cancer screening HLD (hyperlipidemia) HTN (hypertension) Hypothyroidism Hypothyroidism Surgical History Surgical History History of ankle surgery Social History Social History Smoking status: Never smoker Alcohol intake: current Drinks per week: 0 Alcohol use details: occasional Substance use: never Substance use type: does not use Living arrangements: with family Spiritual care concerns: No Meds Home Medications and Allergies Home Medications Medication Instructions Recorded Confirmed Type levothyroxine 75 mcg tablet 75 mcg PO DAILY 07/31/21 09/10/23 History pravastatin 20 mg tablet 20 mg PO DAILY 07/31/21 09/10/23 History aspirin 81 mg tablet,delayed 81 mg PO EVERY OTHER DAY 02/23/22 09/10/23 History release (Ecotrin Low Strength) gabapentin 600 mg tablet 600 mg PO BID 02/23/22 09/10/23 History losartan 25 mg tablet 25 mg PO QHS 02/23/22 09/10/23 History calcium 600 mg capsule 600 mg PO DAILY 09/10/23 09/10/23 History calcium polycarbophil 625 mg 625 mg PO DAILY 09/10/23 09/10/23 History tablet (FiberCon) polyethylene glycol 3350 17 17 g PO DIRECTED 09/10/23 09/10/23 History gram/dose oral powder (Miralax) Allergies Allergy/AdvReac Type Severity Reaction Status Date / Time codeine AdvReac Itching Verified 10/03/23 07:20 Corticosteroids AdvReac Unknown Verified 10/03/23 07:20 (Glucocorticoids) Vital Signs Vital Signs - 24 hr 10/03/23 07:22 Temperature 97.7 F Pulse Rate 65 Respiratory Rate 18 Blood Pressure 146/80 H Pulse Oximetry 100 Oxygen Delivery Room Air Exam Const: General: comfortable and no acute distress HENMT: Face/Nose/Sinus: Normal nares present Eyes: General: appearance normal, both eyes and all related structures Neck: Neck: no JVD Resp: Auscultation: clear to auscultation bilaterally Cardio: Rate: regular rate Rhythm: regular rhythm GI: Inspection: non-distended GI Palp: Yes Soft to palpation Skin: General skin exam: normal color Neuro: General: gait normal Speech: normal speech Extrem: General: normal to inspection Psych: Mental Status: mental status grossly normal Assessment and Plan Assessment and plan (1) Adenomatous colon polyp: Code(s): D12.6 - Benign neoplasm of colon, unspecified Status: Acute Assessment and Plan: colonoscopy
[2023-10-03 08:38] VITALS: BP 92/54; PULSE 62; RESP 12; O2SAT 98
[2023-10-03 08:48] VITALS: BP 109/56; PULSE 63; RESP 16; O2SAT 98
[2023-10-03 08:58] VITALS: BP 113/66; PULSE 65; RESP 19; O2SAT 100
== END 2023-10-03 09:08 | disposition home or self-care (01) ==
PROVIDERS: PCP Internal Medicine; Visit Provider Internal Medicine Gastroenterology
PROC: 0DJD8ZZ Inspection of Lower Intestinal Tract, Via Natural or Artificial Opening Endoscopic (ICD-10-PCS; CPT 45378; principal; 2023-10-03 08:30)
DX: Z12.11 Encounter for screening for malignant neoplasm of colon (principal); K63.5 Polyp of colon; K64.8 Other hemorrhoids; I10 Essential (primary) hypertension; E78.5 Hyperlipidemia, unspecified; E03.9 Hypothyroidism, unspecified; Z79.82 Long term (current) use of aspirin
CPT/HCPCS: 45380; 88305; J2001; J2704; J7120

== ENCOUNTER 2024-02-17 14:20 | Outpatient (RCR) | payer MEDICARE, OTHER, SELFPAY ==
--- NOTE | 2024-02-17 15:20 | PTOPEVAL1 ---
Assessment and note entered by Robby Vizcarra Evaluation Information Assessment Status Evaluation Diagnosis lumbar spondylosis Onset 10/25/23 Subjective Information Pt. reports that she had a flare in her back pain in October. She had not incident, just gradual onset. She reports that the pain has worsened since the onset. She reports she has attempted over the counter Tylenol, which gives temporary relief. 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 She reports that pain is increased with transitioning from sitting to stand, bending forward. She describes pain in the area of the left low back and can shoot into the left buttock and leg. She reports that sometimes bending forward can ease her pain. She reports she can only walk a short distance and has to sit after 15 minutes due to pain. She reports no long ago she was able to walk 2 miles daily, but no longer can. She reports that her goal is to reduce her low back pain. Reported Pain Level Pain Score 2: Self Report Assessment PT Clinical Summary Pt. is a 73 year old female who enters the clinic with low back pain, with hx of laminectomy at multiple levels. She presents with impaired flexibility, impaired lumbar mobility, impaired l. e. strength , impaired postural awareness and pain . Continued skilled PT is indicated in order to improve these areas to allow for improved comfort with IADL performance. Plan of Care Interventions Electrical Stimulation,Manual Therapy,Neuro Re- education,Patient/Caregiver Educati,Therapeutic Activities,Therapeutic Exercise PT Services Indicated Yes Treatment Frequency and 2x/week x 10 visits Duration These treatments will address the objective and functional deficits as defined above. The patient will be advanced safely and appropriately in order for the patient to progress towards his/her prior level of function. Additional exercises will be introduced and as well as a comprehensive home exercise program upon discharge, if needed, ?to ensure carryover of functional gains achieved in the clinic. This treatment plan has been reviewed and agreement upon by the patient.
--- NOTE | 2024-02-17 15:20 | OPREHPOC ---
Outpatient Therapy Plan of Care This is a Multidisciplinary Plan of Care that may contain components documented by all disciplines (PT, OT, and ST.) PT Problem 1 PT Problem #1 Knowledge Deficit PT Goal 1 Goal Pt. will be independent with a HEP addressing trunk mobility. Target Visit 2 PT Problem 2 PT Problem #2 Pain PT Goal 1 Goal Pt. will report pain levels at 4/10 at worst with prolonged standing activities. Target Visit 10 PT Problem 3 PT Problem #3 Impaired Functional Mobil PT Goal 1 Goal Pt. will provide reports of being able to walk for duration of 30 minutes without rest due to pain. Pt. will present with less than 15% limitation on the Oswestry Target Visit 10
== END 2024-03-18 20:00 | disposition home or self-care (01) ==
LOC: CHSPT 14:20
DX: M47.816 Spondylosis without myelopathy or radiculopathy, lumbar region (principal)
CPT/HCPCS: 97014; 97110; 97161; G0283

== ENCOUNTER 2024-07-27 14:48 | Outpatient (CLI) | payer MEDICARE, OTHER, SELFPAY ==
--- NOTE | ~2024-07-27 | MR_ITS ---
EXAMINATION: MR lumbar spine wo/w con DATE: 07/27/2024 16:02 INDICATION: Lumbar spondylosis. TECHNIQUE: Magnetic resonance imaging (MRI) of the lumbar spine was performed without and with 15 mL MultiHance intravenous contrast. COMPARISON: Lumbar spine radiographs 12/15/2020 FINDINGS: There is 13 degrees levoscoliosis of thoracolumbar spine. There is 4 mm anterolisthesis of L1 on L2 and L2 on L3. Vertebral body heights are normal. There is severely decreased disc height fro m L1-L2 through L3-L4 and moderately decreased disc height at L4-L5 and L5-S1. There is increased T2- weighted signal intensity in the spinal cord at T10-T11. The conus medullaris is at T12. The followin g disc levels are specifically discussed: L1-L2: The disc is bulging and has an annular fissure. There is severe bilateral facet joint osteoart hritis. There is moderate right and mild left neural foraminal stenosis. There is mild central canal stenosis. L2-L3: The disc is bulging and has an annular fissure. There is severe bilateral facet joint osteoart hritis. There is moderate bilateral neural foraminal stenosis. There is mild central canal stenosis. There is posterior decompression. L3-L4: The disc is bulging. There is severe bilateral facet joint osteoarthritis. There is moderate b ilateral neural foraminal stenosis. There is mild central canal stenosis. There is posterior decompre ssion. L4-L5: The disc is bulging and has an annular fissure. There is severe bilateral facet joint osteoart hritis. There is mild right and moderate left neural foraminal stenosis. There is mild central canal stenosis. There is posterior decompression. L5-S1: The disc is bulging. There is severe bilateral facet joint osteoarthritis. There is mild bilat eral neural foraminal stenosis. There is mild central canal stenosis. IMPRESSION: 1. 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 2. Severe lumbar spondylosis. 3. Thoracolumbar levoscoliosis. Reviewed, dictated and finalized at location A. SOFTWARE ENGINEER
--- NOTE | ~2024-07-27 | MR_ITS ---
EXAMINATION: MR thoracic spine wo/w con DATE: 07/27/2024 16:01 INDICATION: Thoracic spondylosis. TECHNIQUE: Magnetic resonance imaging (MRI) of the thoracic spine was performed without and with 15 m L MultiHance intravenous contrast. COMPARISON: None FINDINGS: There is 11 degrees dextroscoliosis of thoracic spine. There is kyphosis of thoracic spine. Vertebral body heights are normal. There is mildly decreased disc height at multiple levels. There i s moderately decreased disc height at T2-T3, T7-T8, and T9-T10 and severely decreased disc height at T11-T12. There are bridging endplate osteophytes at T3-T4. There is severe facet joint osteoarthritis at many levels. There is multilevel mild neural frontal stenosis on either side. On the right, there is moderate neural foraminal stenosis at T1-T2, T2-T3, and T5-T6. On the left, there is moderate kalli ral foraminal stenosis at T2-T3. At T2-T3, the disc is bulging with mild central canal stenosis. The discs are bulging from T4-T5 through T10-T11 with mild central canal stenosis. There is increased T2- weighted signal intensity in the spinal cord at T11-T12, consistent with myelomalacia. IMPRESSION: 1. Myelomalacia at T11-T12. 2. Severe thoracic spondylosis. 3. Thoracic kyphosis and dextroscoliosis. Reviewed, dictated and finalized at location A. DELIVERY DRIVER
== END 2024-07-27 14:49 | disposition home or self-care (01) ==
LOC: MICIMG 14:49
PROVIDERS: PCP Neurological Surgery; Visit Provider Neurological Surgery
DX: G95.89 Other specified diseases of spinal cord (principal); M47.814 Spondylosis without myelopathy or radiculopathy, thoracic region; M41.84 Other forms of scoliosis, thoracic region
CPT/HCPCS: 72157; 72158; A9577

== ENCOUNTER 2025-06-05 07:00 | Outpatient (CLI) | payer MEDICARE, SELFPAY ==
--- OUTSIDE RECORDS SUMMARY | 2025-06-05 07:04 | XMS_ITS | Clinical Summary ---
Author Organization [facility] Care Team Providers Care Mining Consultant Name Role Phone Unavailable Primary Care Provider Unavailabl e Social History Tobacco Use Types Packs/Day Years Used Date Smoking Tobacco: Never Assessed Comments Unknown Sex and Gender Information Value Date Recorded Sex Assigned at Not on file Legal Sex Female 7:05 PM CDT Gender Identity Not on file Sexual Orientation Not on file Plan of Treatment Not on file
--- OUTSIDE RECORDS SUMMARY | 2025-06-05 07:04 | XMS_ITS | Clinical Summary ---
Author Organization [facility] Address [address] [place] [address] Phone Care Team Providers Care It Analyst Name Role Phone Lyndon Mcdermott MD Primary Care Provider [phone] Allergies Active Allergy Reactions Criticality Noted Date Comments Codeine Itching Low 02/12/2022 Corticosteroids (Glucocorticoids) Unknown Per patch test Medications levothyroxine 75 mcg tablet Take 75 mcg by mouth daily in the morning. Active losartan (COZAAR) 25 mg tablet Take 25 mg by mouth daily at bedtime. Active pravastatin (PRAVACHOL) 20 mg tablet Take 20 mg by mouth daily at bedtime. Active gabapentin (NEURONTIN) 600 mg tablet Take 600 mg by mouth 2 times daily. Active aspirin (ECOTRIN EC) 81 mg Tablet, Delayed Release (E.C.) Take 81 mg by mouth daily. Active Calcium-Choleca lciferol, D3, (OSCAL) 250 mg-3.125 mcg (125 unit) per tablet Take by mouth daily with lunch. Active vit A/C/E ac/ZnOx/cupric oxide (EYE VITAMIN AND MINERALS ORAL) Take 1 Capsule by mouth daily after lunch. Active oxyCODONE (ROXICODONE) 10 mg tabletIndicatio ns:Spinal stenosis, unspecified spinal region Take 1 Tablet (10 mg) by mouth every 4 hours as needed for Pain, Break-Through. Max Daily Amount: 60 mg 20 Tablet 2 Active enoxaparin (LOVENOX) 40 mg/0.4 mL injection Inject 0.4 mL (40 mg) by subcutaneous injection every 24 hours. 0 2 Active FIBER, HERBAL, ORAL Take by mouth. Activ e Active Problems No known active problems Encounters Date Type Department Care Team Description 05/11/2025 External Device Data [facility]CTION Provider, Abstract 03/10/2025 External Device Data [facility] Provider, Abstract 03/09/2025 External Device Data [facility] Provider, Abstract from Last 3 Months Family History Relation Name Status Comments Father Mother Social History Tobacco Use Types Packs/Day Years Used Date Smoking Tobacco: Never Smokeless Tobacco: Never Alcohol Use Standard Drinks/Week Comments Yes 0 (1 standard drink = 0.6 oz pur e alcohol) not on regular basis Comments No Sex and Gender Information Value Date Recorded Sex Assigned at Not on file Legal Sex Female 9:14 AM CDT Gender Identity Not on file Sexual Orientation Not on file Last Filed Vital Signs Vital Sign Reading Time Taken Comments Blood Pressure 148/80 02/11/2024 10:13 AM CDT Pulse 59 02/11/2024 10:13 AM CDT Temperature 36.6 C (97.9 F) 02/11/2024 10:13 AM CDT Respiratory Rate 16 02/11/2024 10:13 AM CDT Oxygen Saturation 99% 02/11/2024 10:13 AM CDT Inhaled Oxygen Concentration - - Weight 72.2 kg (159 lb 1.6 oz) 02/11/2024 10:13 AM CDT Height 165.1 cm (5' 5) 02/11/2024 10:13 AM CDT Body Mass Index 26.48 02/11/2024 10:13 AM CDT Plan of Treatment Health Maintenance Due Date Last Done Comments DTAP/TDAP/TD VACCINES (1 - Tdap) 1971 COLORECTAL SCREENING 1997 Colorectal Cancer Screening 1997 FIT-DNA Q 3 years 1997 FIT/FOBT Q 1 year 1997 Flex Sig/CT Colonography Q 5 years 1997 PNEUMOCOCCAL VACCINE 50+ YEA RS (1 of 1 - PCV) 2002 ZOSTER VACCINE (1 of 2) 2002 BREAST CANCER SCREENING 08/29/2024 08/29/2023, 08/29 INFLUENZA VACCINE (#1) 2025 RSV VACCINE (60+ or ) (1 - 1-dose 75+ series) 2027 OSTEOPOROSIS SCREENING 08/29/2028 08/29/2023, 2023 Medical Devices Implanted Type Area Compensation Intern Device Identifier Shelf Expiration Date Model / Serial / Lot Sealant Duraseal 5ml [id number] Implanted:Qty : 1 on 02/19/2022 by Roly Pizano MD at [facility] Biological N/A: Spine Lumbar [employer] 06/25/2023 / / [id number] Hemostatic Surgiflo 8ml W/ Thrombin 299 - [id number] Implanted:Qty : 1 on 02/19/2022 by Roly Pizano MD at [facility] Hemostatic N/A: Vertebrae [employer] 05/25/2023 [id number] / / [id number] Insurance MEDICARE PART A AND B PHYSICI[employer] [facility] Advance Directives For more information, please contact: [phone] * Full Code (Latest Code Status on File) Date Activated Date Inactivated Comments 02/19/2022 12:55 PM 02/23/2022 2:41 PM Care Teams It Analyst Relationship Specialty Start Date End Date Lyndon Mcdermott MD [address] [place] [address] PCP - General Internal Medicine 02/19/22
--- OUTSIDE RECORDS SUMMARY | 2025-06-05 07:05 | XMS_ITS ---
Care Plan - [facility] Created on: June 05, 2025 TYREE MORELOS : 1950 Sex: Female Author Organization [facility] Address [address] [place] [address] Phone Care Team Providers Care Lead Janitor Name Role Phone Unavailable Unavailable Unavailable
--- OUTSIDE RECORDS SUMMARY | 2025-06-05 07:05 | XMS_ITS ---
Author Organization [facility] Address [address] [place] [address] Phone Care Team Providers Care Green Building Engineer Name Role Phone Unavailable Unavailable Unavailable Plan of Treatment No Plan of Treatment Recorded Assessments Includes: Assessments for all patient encounters Findings Encounter Date [R50.9 - Fever, unspecified] fever of unknown origin COVID SICK VISIT- ESTABLISHED PATIENT with ISIDORO DE LA CRUZ-Alda 05/10/2021 Last Documented On 1 4:50PM ; [facility] Contact with and (Suspected) exposure to COVID-19 COVID SICK VISIT- ESTABLISHED PATIENT with ISIDORO DE LA CRUZ-Alda 05/10/2021 Last Documented On 1 4:50PM ; [facility] Medical Equipment - Implanted Devices Includes: Current and historical Devices No Medical Equipment Recorded Medications Administered Includes: Administered Medications in patient's chart No Administered Medications Recorded Results Includes: Results from 06/05/2024 through 06/05/2025 No Results Recorded For Specified Dates History of Present Illness History of Present Illness not supported for this document type No History of Present Illness Recorded Social History Description Last Updated Tobacco non-user 05/10/2021 Last Documented On 1 4:50PM ; [facility] Smoking Status Unknown Medical History Includes: Medical History in patient's chart No Medical History Recorded Family History Includes: Family History in patient's chart No Family History Recorded Review of Systems Review of Systems not supported for this document type No Review of Systems Recorded Mental Status No Mental Status Recorded Functional Status No Functional Status Recorded Physical Exam Physical Exam not supported for this document type No Physical Exam Recorded Clinical Notes Includes: Signed Clinical Notes starting from 09/14/2022 No Clinical Notes Recorded
--- OUTSIDE RECORDS SUMMARY | 2025-06-05 07:06 | XMS_ITS | Clinical Summary ---
Author Organization [facility] Address [address] [place] [address] Care Team Providers Care Laborer Plumbing Name Role Phone Lyndon Mccoy MD Primary Care Provider [phone] Allergies Active Allergy Reactions Criticality Noted Date Comments Corticosteroids (Glucocorticoids) Rash Medium Medications pravastatin (PRAVACHOL) 20 mg tablet Take 20 mg by mouth daily Active levothyroxine (SYNTHROID) 75 mcg tablet Take 75 mcg by mouth customer engineer before breakfast Active calcium carbonate-vitami n D3 500 mg(1,250mg) -400 unit chewable tablet Take 1 tablet by mouth daily Active vit C,N-Lb-vuqeq-lut ein-zeaxan 250-90-40-1 mg capsule Take by mouth Active aspirin 81 mg enteric coated tablet Take 81 mg by mouth every other day Active polyethylene glycol (MIRALAX) 17 gram packetIndication s:constipation Take 17 g by mouth daily Active gabapentin (NEURONTIN) 300 mg capsuleIndicatio ns:Paresthesia of both lower extremities Take 2 capsules TID 180 capsule 3 2 Active losartan (COZAAR) 25 mg tablet Take 25 mg by mouth daily Active amitriptyline (ELAVIL) 25 mg tablet Take one tablet po qhs for one week, then two tablets po qhs 60 tablet 3 2 Active Active Problems Problem Noted Date Diagnosed Date Acute pain of both knees 12/18/2021 Muscle pain 12/18/2021 Pain in both lower extremities 07/11/2021 Surgical History Surgery Date Site/Laterality Comments ANKLE ARTHROPLASTY Family History Medical History Relation Name Comments Cancer Father Cancer Mother Cancer Sister Relation Name Status Comments Father Mother Sister Social History Tobacco Use Types Packs/Day Years Used Date Smoking Tobacco: Never Smokeless Tobacco: Never Personal Safety Answer Date Recorded Getting School Help Needed Not on file 08/27 Comments Unknown Sex and Gender Information Value Date Recorded Sex Assigned at Not on file Legal Sex Female 6:33 AM RESEARCH CHEMIST Gender Identity Not on file Sexual Orientation Not on file Obstetrics History Para Term AB IAB SAB Ectopic Multiple Livin g Live Births 2 2 2 Date Outcome GA Total Labor Labor/2nd/3rd Weight Sex Type Anes PTL Janna A1 A5 Name Clin Term Term Last Filed Vital Signs Vital Sign Reading Time Taken Comments Blood Pressure 152/90 12/18/2021 9:56 AM CDT Pulse 89 12/18/2021 9:56 AM CDT Temperature - - Respiratory Rate - - Oxygen Saturation - - Inhaled Oxygen Concentration - - Weight 75.8 kg (167 lb) 12/18/2021 9:56 AM CDT Height 167.6 cm (5' 6) 12/18/2021 9:56 AM CDT Body Mass Index 26.95 12/18/2021 9:56 AM CDT Plan of Treatment Health Maintenance Due Date Last Done Comments Colon Cancer Screening-Colonoscopy 1950 Depression Screening 1950 Fall Risk Assessment 1950 Hepatitis C Screening 1950 Hepatitis B Screening 1970 Zoster Vaccine (2 of 3) 12/15/2012 10/20/2012 Well Visit 65+ 2017 DTaP/Tdap/Td Vaccine (2 - Td or Tdap) 04/08/2022 04/08/2012 Breast Cancer Screening-Mammogram 08/29/2024 024 Covid-19 Vaccine (3 - 2024-2 6 season) 2025 11/25/2020, 10/28/2020 Influenza Vaccine (#1) 2025 , 06/15/2019, 06/25/2018, Additional history exists Osteoporosis Screening-Bone Density Scan 08/29/2025 08/29/2023 Pneumococcal vaccine 65+ Completed 07/28/2019, 05/28 Procedures Procedure Name Priority Date/Time Associated Diagnosis Comments SCREENING MAMMOGRAM BILATERAL W MERON Schedule Routine, Read Routine (OP Routine) 08/29/2023 12:38 PM RESEARCH CHEMIST Encounter for screening mammogram for malignant neoplasm of breast DEXA AXIAL SKELETON BONE DENSITY 1 OR MORE SITES Schedule Routine, Read Routine (OP Routine) 08/29/2023 12:22 PM RESEARCH CHEMIST Asymptomatic menopausal state from Last 3 Months or Most Recently Relevant to Health Maintenance Results * Screening Mammogram Bilateral W Meron (08/29/2023 12:38 PM RESEARCH CHEMIST) Anatomical Region Laterality Modality Breast Bilateral Mammography 08/30/2023 1:17 PM RESEARCH CHEMIST Impressions 08/30/2023 1:17 PM RESEARCH CHEMIST There is no mammographic evidence of malignancy. A 1 year screening mammogram is recommended. BI-RADS: 1 - Negative. The patient has been or will be contacted. The patient will be entered into a reminder system with a target due date of 1 year for her next mammogram. Electronically signed by: Lv Reeves M.D. Narrative 08/30/2023 1:17 PM RESEARCH CHEMIST EXAMINATION: SCREENING MAMMOGRAM BILATERAL W MERON ORDERING HEALTHCARE PROVIDER: LYNDON MCCOY HISTORY: Routine screening mammography. COMPARISON: 06/01/2019, 04/14/2018, 03/19/2017 - [facility] ([place], [place]) TECHNIQUE: CC and MLO views of the bilateral breasts were obtained with digital technique using breast tomosynthesis with C view. Computer aided detection was utilized. FINDINGS: DENSITY: There are scattered fibroglandular elements in the bilateral breasts. BREASTS: There are no suspicious masses, suspicious calcifications, or other suspicious findings in either breast. There has been no suspicious interval change. us Lyndon Mccoy MD IMG MAMMO PROCEDURES Final Resu lt * Dexa Axial Skeleton Bone Density 1 or 2 Site (08/29/2023 12:22 PM RESEARCH CHEMIST) Anatomical Region Laterality Modality Body N/A Other 08/29/2023 9:11 PM RESEARCH CHEMIST Narrative 08/29/2023 9:12 PM RESEARCH CHEMIST EXAM DESCRIPTION: DEXA AXIAL SKELETON BONE DENSITY 1 OR MORE SITES REASON FOR STUDY: 73 y/o year old F with given history of: post menopausal Osteoporosis screening Post menopausal Surgical Processor/Model: [employer] Discovery SL (S/N [id number]) CLINICAL INFORMATION: Current height: 66 inches Maximum height: 67 inches Weight: 167 pounds Risk factors: Postmenopausal, secondary osteoporosis COMPARISON: None available FINDINGS: AP LUMBAR SPINE L1-L4: Total BMD is 1.044 g/cm2 T-score is 0.0 LEFT HIP: Total BMD is 0.843 g/cm2 T-score is -0.8 Femoral neck BMD is 0.584 g/cm2 T-score is -2.4 FRAX: 10 year risk for a major osteoporotic fracture is 14 %, 10 year risk for a hip fracture is 3.4 % IMPRESSION: Low Bone Mass. REFERENCE: Bone mineral density: Normal (T-score above or = -1.0) Low bone mass (T-score between -1.0 and -2.5) replaces the previously used term osteopenia Osteoporosis (T-score = or below -2.5) Medical evaluation for secondary causes of low bone mineral density may be appropriate. FRAX is a World Health Organization validated fracture risk assessment tool that calculates a person's 10 year probability of a major osteoporosis related fracture and hip fracture. According to the National Osteoporosis Foundation guidelines, postmenopausal women and men age 50 or older with low bone mass and a 10 year probability of a major osteoporosis related fracture = or greater than 20% or a 10 year probability of a hip fracture = or greater than 3% should be considered for treatment. For further information, including treatment recommendations, please refer to the 2019 ISCD Official Positions (http://www.iscd.org) and the NOF's Clinician's Guide to Prevention and Treatment of Osteoporosis (http://www.nof.org/professionals/clinical-guidelines) THIS IS AN ELECTRONICALLY VERIFIED FINAL REPORT 08/29/2023 9:12 PM - Electronically signed by Robby Flores M.D. MF: [id number] Report ID: [id number] Reading Location: [id number] Procedure Note Robby Flores MD - 08/29/2023 EXAM DESCRIPTION: DEXA AXIAL SKELETON BONE DENSITY 1 OR MORE SITES REASON FOR STUDY: 73 y/o year old F with given history of: post menopausal Osteoporosis screening Post menopausal Surgical Processor/Model: [employer] Discovery SL (S/N [id number]) CLINICAL INFORMATION: Current height: 66 inches Maximum height: 67 inches Weight: 167 pounds Risk factors: Postmenopausal, secondary osteoporosis COMPARISON: None available FINDINGS: AP LUMBAR SPINE L1-L4: Total BMD is 1.044 g/cm2 T-score is 0.0 LEFT HIP: Total BMD is 0.843 g/cm2 T-score is -0.8 Femoral neck BMD is 0.584 g/cm2 T-score is -2.4 FRAX: 10 year risk for a major osteoporotic fracture is 14 %, 10 year risk for ahip fracture is 3.4 % IMPRESSION: Low Bone Mass. REFERENCE: Bone mineral density: Normal (T-score above or = -1.0) Low bone mass (T-score between -1.0 and -2.5) replaces thepreviously used term osteopenia Osteoporosis (T-score = or below -2.5) Medical evaluation for secondary causes of low bone mineral density may be appropriate. FRAX is a World Health Organization validated fracture risk assessmenttool that calculates a person's 10 year probability of a major osteoporosisrelated fracture and hip fracture. According to the National OsteoporosisFoundation guidelines, postmenopausal women and men age 50 or older with low bonemass and a 10 year probability of a major osteoporosis related fracture = or greater than 20% or a 10 year probability of a hip fracture = or greaterthan 3% should be considered for treatment. For further information, including treatment recommendations, please referto the 2019 ISCD Official Positions (http://www.iscd.org) and the NOF's Clinician's Guide to Prevention and Treatment of Osteoporosis (http://www.nof.org/professionals/clinical-guidelines) THIS IS AN ELECTRONICALLY VERIFIED FINAL REPORT 08/29/2023 9:12 PM - Electronically signed by Robby Flores M.D. MF: DIANA Report ID: [id number] Reading Location: [place] [address] Lyndon Mccoy MD IM DXA PROCEDURES Final Result from Last 3 Months or Most Recently Relevant to Health Maintenance [place] [address] MEDICARE [employer] Care Teams Laborer Plumbing Relationship Specialty Start Date End Date Lyndon Mccoy MD PCP - General Internal Medicine 05/25/21
--- OUTSIDE RECORDS SUMMARY | 2025-06-05 07:06 | XMS_ITS | Encounter Summary ---
Author Organization [facility] Address [address] [place] [address] Care Team Providers Care Pmo Analyst Name Role Phone Lyndon Mcdermott MD Primary Care Provider [phone] Reason for Visit * Reason Onset Date Comments Post-op Management 02/19/2022 Spoke rhonda Sheffield @ [facility] exchange- ONLINE COMMUNICATIONS MANAGER Romero manager occupational Encounter Details Date Type Department Care Team (Late st Contact Info) Description 02/19/2022 Telephone [facility] Admitting [address] [place] [address] Marisa Pizano MD [address] [facility] [address] [place] [address] Post-op Management (Spoke rhonda Sheffield @ [facility] exchange- ONLINE COMMUNICATIONS MANAGER Romero manager occupational ) Social History Tobacco Use Types Packs/Day Years [...] on file Sexual Orientation Not on file COVID-19 Exposure Response Date Recorded In the last 10 days, have yo u been in contact with someone who was confirmed or suspected to have Coronavirus/COVID-19? No / Unsure 02/19/2022 1:34 PM CDT documented as of this encounter Plan of Treatment Not on file documented as of this encounter Visit Diagnoses Not on filedocumented in this encounter Care Teams Pmo Analyst Relationship Specialty Start Date End Date Lyndon Mcdermott MD [address] [place] [address] PCP - General Internal Medicine 02/19/22 documented as of this encounter
--- OUTSIDE RECORDS SUMMARY | 2025-06-05 07:06 | XMS_ITS | Clinical Summary ---
Author Organization [facility] Address [address] [place] [address] Phone Care Team Providers Care Ornamenter Name Role Phone Unavailable Unavailable Unavailable Reason for Visit and Chief Complaint The Chief Complaint is: Pt here with fever and fatigue started about Saturday Pt has had vaccines Plan of Treatment No Plan of Treatment Recorded Assessments Includes: Assessments from this encounter Findings - [Z20.822 - Contact with and (suspected) exposure to COVID-19] Contact with and (Suspected) exposure to COVID-19 - Last Documented On 05/10/2021 4:50PM ; [facility] - [R50.9 - Fever, unspecified] Fever of unknown origin - Last Documented On 05/10/2021 4:50PM ; [facility] Medical Equipment - Implanted Devices Includes: Current Devices No Medical Equipment Recorded Medications Administered Includes: Administered Medications from this encounter No Administered Medications Recorded Vital Signs Includes: Vital Signs from this encounter Vital Name 05/10/2021 03:55P Pulse Rate-Sitting (bpm) 106 Respiration Rate (breaths/min) 20 Temp-Oral (F) 101.5 Oxygen Saturation (%) 97 Last Documented: On 05/10/2021 3:58PM ; [facility] Results Includes: Results discussed during this encounter Influenza A/B [facility] Ordered by ISIDORO GONZALEZ PA-C on Collected: Reported: 05/10/2021 16:13 Last Documented On 1 4:16PM ; [facility] Reviewed on 05/10/2021; All test results are final unless otherwise noted. Influenza A neg N (Normal) Last Documented On 1 4:14PM ; [facility] Influenza B neg N (Normal) Last Documented On 1 4:14PM ; [facility] INT. QC ACCEPTABLE? yes N (Normal) Last Documented On 1 4:14PM ; [facility] LOT # & EXP. DATE [id number] N (Normal) Last Documented On 1 4:14PM ; [facility] Rapid COVID Test [facility] Ordered by ISIDORO GONZALEZ PA-C on Collected: Reported: 05/10/2021 16:14 Last Documented On 1 4:16PM ; [facility] Reviewed on 05/10/2021; All test results are final unless otherwise noted. Rapid COVId neg N (Normal) Last Documented On 1 4:15PM ; [facility] Int. QC Acceptable yes N (Normal) Last Documented On 1 4:15PM ; [facility] Lot # and Exp. Date [id number] N (Normal) Last Documented On 1 4:15PM ; [facility] History of Present Illness Includes: History of Present Illness from this encounter PHUONG MORELOS is a 71 year old female. Source of patient information was patient ? Allergy list reviewed ? Problem list reviewed ? Medication reconciliation performed - Feeling poorly (malaise) - Fever - No chills - No headache - No sinus pain - No swollen glands in the neck - Postnasal drip - No earache - No sore throat - No chest pain or discomfort - No dyspnea - No cough - Diarrhea - No nausea - Muscle aches Patient is here for evaluation of fever, body aches, malaise, no appetite for 4 days. Patient states she started taking meloxicam on Saturday and thought that was causing her symptoms. She stopped taking meloxicam 2 days ago and states symptoms have only worsened since. She is fully vaccinated. She has not taken ibuprofen or tylenol for symptoms. She states she has been around her grandkids that have had respiratory virus. Social History Description Last Updated Tobacco non-user 05/10/2021 Last Documented On 1 4:50PM ; [facility] Smoking Status Unknown Procedures and Surgical History Includes: Procedures from this encounter Procedures Code Diagnosis Performing Provider Service L ocation Service Date review of medications documented 1160F Last Documented On 1 3:58PM ; [facility] Medical History Includes: Medical History addressed during this encounter No Medical History Recorded Family History Includes: Family History addressed during this encounter No Family History Recorded Review of Systems Includes: Review of Systems from this encounter Systemic: Fever. No chills and no edema. Head: Headache. Neck: No neck stiffness. Otolaryngeal: No earache, no nasal discharge, no postnasal drip, and no sore throat. Cardiovascular: No chest pain or discomfort. Pulmonary: No dyspnea and not expressed as feeling short of breath. No cough. Gastrointestinal: No nausea. Diarrhea. Neurological: No dizziness. Mental Status Includes: Mental Status from this encounter No Mental Status Recorded Functional Status Includes: Functional Status from this encounter No Functional Status Recorded Physical Exam Includes: Physical Exam from this encounter Encounters Encounter Provider Location Date Check-In Time Check-Out Time Diagnosis COVID SICK VISIT- ESTABLISHED PATIENT ISIDORO GONZALEZ PA-C [facility] 05/10/20 21 3:55PM 4:28PM Contact with and (Suspected) Exposure To Covid-19,Fev er of Unknown Origin Clinical Notes Includes: Clinical Notes from this encounter No Clinical Notes Recorded
[2025-06-05 07:48] LABS: Hemoglobin A1C 6.0 % (<5.7)
[2025-06-05 08:17] LABS: Alanine Aminotransferase 19 U/L (6-35); Albumin Level 4.5 g/dL (3.5-5.1); Alkaline Phosphatase 71 U/L (38-126); Anion Gap 8 mmol/L (4-12); Aspartate Amino Transferase 24 U/L (14-36); Bilirubin,Total 0.5 mg/dL (0.2-1.3); Blood Urea Nitrogen 19 mg/dL (7-17); Calcium 9.5 mg/dL (8.4-10.2); Carbon Dioxide 27 mmol/L (22-30); Chloride 107 mmol/L (98-107); Cholesterol 164 mg/dL (0-200); Estimated Glomerular Filt Rate > 60; Glucose 102 mg/dL (65-110); HDL Direct 46 mg/dL; Osmolality Calculated 296 mOsm/kg (285-295); Potassium 4.5 mmol/L (3.4-5.0); Sodium 142 mmol/L (137-145); Total Protein 7.7 g/dL (6.3-8.2); Triglycerides 94 mg/dL (<150)
== END 2025-06-05 07:01 | disposition home or self-care (01) ==
LOC: CHSLAB 07:02
PROVIDERS: PCP Internal Medicine; Visit Provider Internal Medicine
DX: I10 Essential (primary) hypertension (principal); E78.5 Hyperlipidemia, unspecified; R73.01 Impaired fasting glucose
CPT/HCPCS: 36415; 80053; 80061; 83036